=== PATIENT | female | born 2000 | race Caucasian/White ===

== ENCOUNTER 2021-08-16 20:39 | Emergency (ER) | payer OTHER ==
[~2021-08-16] VITALS: Ht 175.3 cm; Wt 68.0 kg
[~2021-08-16 20:39] MED LIST: KEPP250
[2021-08-16 21:37] LABS: BASOPHILS % 0.1 % (0.0-2.0); EOSINOPHILS % 0.2 % (0.0-5.0); HEMATOCRIT. 39.6 % (36.0-48.0); HEMOGLOBIN. 12.9 g/dL (12.0-16.0); LYMPHOCYTES % 18.2 % (20.0-50.0); MEAN CORPUSCULAR HEMOGLOBIN 29.8 pg (28.0-32.0); MEAN CORPUSCULAR VOLUME 91.2 fL (81.0-99.0); MEAN PLATELET VOLUME 9.9 fl (7.4-10.4); MONOCYTES % 7.5 % (2.0-8.0); PLATELET 212 x1000/uL (130-400); RED BLOOD CELL COUNT 4.34 mill/uL (4.2-5.4); RED CELL DISTRIBUTION WIDTH 14.1 % (11.6-14.6)
[2021-08-16 21:44] LABS: CHLORIDE 116 mEq/L (98-107)
[2021-08-16] MEDS ORDERED: LEVETIRACETAM 500MG PREMIX 100 ML IV ONE (21:45)
[2021-08-16 21:54] LABS: ETHANOL BLOOD < 10 mg/dL
[2021-08-16] MEDS ORDERED: LEVETIRACETAM 500MG PREMIX 100 ML IV NR (23:30)
[2021-08-17] MEDS ORDERED: ACETAMINOPHEN 325MG TABLET PO ONE
[2021-08-17 01:30] VITALS: BP 112/68
== END 2021-08-17 01:51 | disposition home or self-care (01) ==
LOC: ER 20:39
DX: G40.909 Epilepsy, unspecified, not intractable, without status epilepticus (principal)
CPT/HCPCS: 36415; 80053; 80320; 85025; 93005; 96365; 99284; J1953; G0480